=== PATIENT | male | born 1945 | race Caucasian/White ===

== ENCOUNTER 2018-06-17 14:59 | Observation (INO) ==
[2018-06-17 15:26] LABS: Basophils # (auto) 0.04 K/uL (0-0.2); Basophils % (auto) 0.6 %; Eosinophils # (auto) 0.29 K/uL (0-0.5); Eosinophils % (auto) 4.5 %; Hematocrit (blood only) 45.7 % (42-52); Hemoglobin 16.5 g/dL (14.0-18.0); Immature Granulocytes # (auto) 0.01 K/uL (0.00-0.02); Immature Granulocytes % (auto) 0.2 %; Lymphocytes # (auto) 1.25 K/uL (1.2-3.4); Lymphocytes % (auto) 19.6 %; Mean Corpuscular Hgb Conc 36.1 g/dL (32-36); Mean Corpuscular Volume 92.5 fL (80-100); Mean Platelet Volume 10.6 fL (7.4-10.4); Monocytes # (auto) 0.58 K/uL (0.11-0.59); Monocytes % (auto) 9.1 %; Neutrophils # (auto) 4.22 K/uL (1.4-6.5); Platelet Count 151 K/uL (130-400); RDW Coefficient of Variation 12.5 % (11.5-14.5); RDW Standard Deviation 42.4 fL (36.4-46.3); Red Blood Count 4.94 M/uL (4.7-6.1); White Blood Count 6.39 K/uL (4.8-10.8)
[2018-06-17 15:43] LABS: Albumin Level 3.7 gm/dl (3.4-5.0); BUN Creatinine Ratio 20.5 (10-20); Calcium 8.5 mg/dl (8.5-10.1); Est GFR (African American) 77.6; Est GFR (Non-African American) 66.9
[2018-06-17 15:48] LABS: Albumin Globulin Ratio 1.1 (0.9-2); Bilirubin,Total 1.3 mg/dl (0.2-1); Globulin 3.5 gm/dl (2.5-4.0); Total Protein 7.2 gm/dl (6.4-8.2); Troponin I 0.039 ng/ml (0-0.045)
[2018-06-17] MEDS ORDERED: ASPIRIN CHEW 324 MG PO STA (16:34)
--- NOTE | 2018-06-17 17:11 | XRay Report ---
XR chest 2V routine HISTORY: 72 years-old Male cp acute atypical chest pain COMPARISON: None available TECHNIQUE: PA and lateral views of the chest FINDINGS: Cardiomediastinal and hilar silhouettes are within normal limits. Calcification the thoracic aortic a rch. No pneumothorax, pleural effusion or overt pulmonary edema. Minimal ill-defined opacities are no misha within the distribution of the medial segment right middle lobe. Prior cholecystectomy. IMPRESSION: Ill-defined opacities of the medial segment right middle lobe, best seen on the lateral v iew are suggestive of atelectasis or minimal pneumonitis. The above report was generated using voice recognition software. It may contain grammatical, syntax o r spelling errors. Electronically signed by: Murtaza Li M.D. 06/17/2018 5:10 PM
--- NOTE | 2018-06-17 18:13 | History & Physical Report ---
Date of Service June 17, 2018 Assessment & Plan (1) Palpitations: This pt is a 72 yo male with a h/o PAF on Xarelto, nonischemic CM and chronic systolic CHF, DVT/PE, chronic LBBB, and OA who presents to the ER with c/o 2-3 days of profound, intermittent fatigue associated with palpitations and occasional chest pressure. Chest pressure was the worst 2 days ago and felt like "a bubble needed to burst in my chest," came on at rest and was relieved by getting up and walking around. He reports a h/o PAF, but feels his pulse has been a normal rate when these episodes occur. The chest pain did radiate through to his md upper back but is now resolved. He also had some waves of nausea and had one large loose stool yesterday. No vomiting, no blood in stool, no black tarry stools. Denies SOB associated. Did have one episode yesterday where he was shopping at the grocery store and felt like he was about to pass out. In the ER, he was found to have a LBBB on ECG which is normal for him for the last 10 years, sinus rhythm to sinus bradycardia, and all labs unremarkable. CXR normal except slight atelectasis of medial segment of RML. -Could be PAF vs other arrhythmia. -Admit to tele under observation -trend trops as below -check ECHO -Consult Cardiology for further recommendations -consider cardiac event monitor if no further events occur while here -continue Coreg home dose (2) Chest pain: Very atypical. CXR here negative. Initial trop is wnl but not zero. Has a h/o nonischemic CM and last cath approx 2015 was nonobstructive disease -trend trops -follow on tele -check ECHO -APAP as needed for pain (3) Hyperlipidemia: continue statin (4) LBBB (left bundle branch block): chronic for many years -follow (5) Paroxysmal atrial fibrillation: Has a h/o this. None so far here but question if palpitations are A-fib -continue Coreg for rate control -continue Xarelto for anticoagulation (6) History of venous thromboembolism: With provoked DVT and PE after TKA when he did not take his ASA for DVT prevention -continue Xarelto (7) Chronic systolic CHF (congestive heart failure): Last EF 45% Previous cardiac caths without intervention -continue Coreg -has had adverse SEs with ACEi and Entresto in the past (8) Nonischemic cardiomyopathy: as above (9) DVT prophylaxis: Xarelto Dispo-admit to tele observation History of Present Illness Chief Complaint: Palpitations, chest pain Primary Care Provider: Santy Nieto This pt is a 72 yo male with a h/o PAF on Xarelto, nonischemic CM and chronic systolic CHF, DVT/PE, chronic LBBB, and OA who presents to the ER with c/o 2-3 days of profound, intermittent fatigue associated with palpitations and occasional chest pressure. Chest pressure was the worst 2 days ago and felt like "a bubble needed to burst in my chest," came on at rest and was relieved by getting up and walking around. He reports a h/o PAF, but feels his pulse has been a normal rate when these episodes occur. The chest pain did radiate through to his md upper back but is now resolved. He also had some waves of nausea and had one large loose stool yesterday. No vomiting, no blood in stool, no black tarry stools. Denies SOB associated. Did have one episode yesterday where he was shopping at the grocery store and felt like he was about to pass out. In the ER, he was found to have a LBBB on ECG which is normal for him for the last 10 years, sinus rhythm to sinus bradycardia, and all labs unremarkable. CXR normal except slight atelectasis of medial segment of RML. Allergies Allergy/AdvReac Type Severity Reaction Status Date / Time No Known Allergies Allergy Unverified 06/17/18 17:17 Home Medications Home Medications Medication Instructions Recorded Confirmed Type carvedilol 3.125 mg PO BID 06/17/18 06/17/18 History rivaroxaban [Xarelto] 20 mg PO DAILY 06/17/18 06/17/18 History rosuvastatin 5 mg PO 3XWK 06/17/18 06/17/18 History Past Med/Surg History Medical History Chronic systolic CHF (congestive heart failure) History of venous thromboembolism Hyperlipidemia LBBB (left bundle branch block) Nonischemic cardiomyopathy Osteoarthritis Paroxysmal atrial fibrillation Surgical History History of knee replacement History of arthroscopic knee surgery History of bilateral inguinal hernia repair History of cholecystectomy History of lumbar discectomy Family History Father Coronary heart disease Mother , age 45 Alcoholic cirrhosis of liver Brother Coronary heart disease Social History Preferred Language: B[place]udian Communication Ability: Effective Infertility Medical Assistant Required: No Beliefs That Will Affect Care: None marital status: Current Living Situation: Spouse current occupational status: retired Other Information That Helps Us Care for You: No Feels Safe at Home: Yes Safety Concerns: Feels Safe At This Time Smoking Status: Never smoker Hx Alcohol Use: No Hx Substance Use: No Review of Systems All systems reviewed & are unremarkable except as noted in HPI & below Physical Exam Vital Signs (Past 24 Hours): Last Vital Signs Temp 36.6 C 06/17/18 15:05 Pulse 89 06/17/18 16:59 Resp 18 06/17/18 16:59 BP 109/75 06/17/18 16:59 Pulse Ox 98 06/17/18 17:01 Constitutional: WD/WN, vitals as above Eyes: PERRL, conjunctivae normal, anicteric sclerae ENMT: external ear and nose normal, oropharynx normal Neck: trachea midline, no thyromegaly Respiratory: normal respiratory effort, lungs clear to auscultation Cardiovascular: RRR, no murmur, no edema Vessels: normal peripheral pulses; no JVD, no carotid bruit and no abdominal aortic bruit Extremities: no calf tenderness and no pedal edema Gastrointestinal (Abdomen): normal bowel sounds, soft, nontender, no hepatosplenomegaly Musculoskeletal: Extremities: extremities normal to inspection; no cyanosis and no clubbing Skin: no rashes, warm and dry Neurologic: moves all extremities and awake; no focal motor deficits Psychiatric: A+Ox3, euthymic affect Results & Data Laboratory Results 06/17/18 06/17/18 Range/Units 15:18 15:18 WBC 6.39 (4.8-10.8) K/uL RBC 4.94 (4.7-6.1) M/uL Hgb 16.5 (14.0-18.0) g/dL Hct 45.7 (42-52) % MCV 92.5 (80-100) fL MCH 33.4 (25-34) pg MCHC 36.1 H (32-36) g/dL RDW Std Deviation 42.4 (36.4-46.3) fL RDW Coeff of Gerardo 12.5 (11.5-14.5) % Plt Count 151 (130-400) K/uL MPV 10.6 H (7.4-10.4) fL Immature Gran % (Auto) 0.2 % Neut % (Auto) 66.0 % Lymph % (Auto) 19.6 % [place] % (Auto) 9.1 % Eos % (Auto) 4.5 % Baso % (Auto) 0.6 % Immature Gran # (Auto) 0.01 (0.00-0.02) K/uL Neut # (Auto) 4.22 (1.4-6.5) K/uL Lymph # (Auto) 1.25 (1.2-3.4) K/uL [place] # (Auto) 0.58 (0.11-0.59) K/uL Eos # (Auto) 0.29 (0-0.5) K/uL Baso # (Auto) 0.04 (0-0.2) K/uL Sodium 138 (136-145) mmol/L Potassium 4.0 (3.5-5.1) mmol/L Chloride 109 H (98-107) mmol/L Carbon Dioxide 25 (21-32) mmol/L Anion Gap 4.0 (3-11) BUN 23 H (7-18) mg/dl Creatinine 1.11 (0.6-1.4) mg/dl Est Cr Clr Drug Dosing 59.0 ml/min Est GFR ( Amer) 77.6 Est GFR (Non-Af Amer) 66.9 BUN/Creatinine Ratio 20.5 H (10-20) Glucose 104 H (70-99) mg/dl Calcium 8.5 (8.5-10.1) mg/dl Total Bilirubin 1.3 H (0.2-1) mg/dl AST 16 (15-37) U/L ALT 18 (12-78) U/L Alkaline Phosphatase 86 (45-117) U/L Troponin I 0.039 (0-0.045) ng/ml Total Protein 7.2 (6.4-8.2) gm/dl Albumin 3.7 (3.4-5.0) gm/dl Globulin 3.5 (2.5-4.0) gm/dl Albumin/Globulin Ratio 1.1 (0.9-2) Lipase 101 (73-393) U/L Diagnostic Findings CXR image personally reviewed by me and agree with the following report: XR chest 2V routine HISTORY: 72 years-old Male cp acute atypical chest pain COMPARISON: None available TECHNIQUE: PA and lateral views of the chest FINDINGS: Cardiomediastinal and hilar silhouettes are within normal limits. Calcification the thoracic aortic arch. No pneumothorax, pleural effusion or overt pulmonary edema. Minimal ill-defined opacities are noted within the distribution of the medial segment right middle lobe. Prior cholecystectomy. IMPRESSION: Ill-defined opacities of the medial segment right middle lobe, best seen on the lateral view are suggestive of atelectasis or minimal pneumonitis. ECG Rhythm: normal sinus Findings: + LBBB Code Status & VTE Plan Code Status FULL CODE
[2018-06-17] MEDS ORDERED: ACETAMINOPHEN 325 MG TAB PO PRN (20:19)
[2018-06-17] MEDS: CARVEDILOL 3.125 MG TAB PO SCH (21:50)
--- NOTE | 2018-06-18 00:27 | Emergency Department Note ---
Entered by Sandhya Thomas acting as a scribe for History of Present Illness General Chief complaint: Chest Pain Stated complaint: CHEST PAIN Time Seen by Provider: 06/17/18 16:26 Source: patient Mode of arrival: ambulatory Limitations: no limitations History of Present Illness Provider complaint: Chest pain Onset (ago): day(s) (2.5) Location: chest (central) Radiation: non-radiation Pain Consistency: + other (worsening) Quality: + other (tightness, fluttering, pain) Relieved By: + none Associated symptoms: + nausea/vomiting and + other (Additional symptoms: fatigue, unusual visual symptoms); no fever/chills The patient is a 72 year old male who presents to the Emergency Room with com plaints of worsening central chest pain starting about 2.5 days ago. The patient characterizes his chest pain as a tight and fluttering sensation. He states that he feels as if air is trapped in his chest and that he needs to belch. He further complains of fatigue, nausea, and unusual visual symptoms, but he denies any fevers. He further denies recent travel and a history of atrial fibrillation and heart attacks. The patient reports that his last chemical stress test was performed a year ago prior to a knee replacement in [place]. 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 He notes that he regularly takes Carvedilol and Xeralto. Home Medications Home Medications Medication Instructions Recorded Confirmed Type carvedilol 3.125 mg PO BID 06/17/18 06/17/18 History rivaroxaban [Xarelto] 20 mg PO DAILY 06/17/18 06/17/18 History rosuvastatin 5 mg PO 3XWK 06/17/18 06/17/18 History Allergies Allergy/AdvReac Type Severity Reaction Status Date / Time No Known Allergies Allergy Unverified 06/17/18 17:17 Past Med/Surg History Medical History Chronic systolic CHF (congestive heart failure) History of venous thromboembolism Hyperlipidemia LBBB (left bundle branch block) Nonischemic cardiomyopathy Osteoarthritis Paroxysmal atrial fibrillation Surgical History History of knee replacement History of arthroscopic knee surgery History of bilateral inguinal hernia repair History of cholecystectomy History of lumbar discectomy Family History Father Coronary heart disease Mother , age 45 Alcoholic cirrhosis of liver Brother Coronary heart disease Social History Preferred Language: Yakut Communication Ability: Effective Patient Carrier Required: No Beliefs That Will Affect Care: None marital status: Current Living Situation: Spouse current occupational status: retired Other Information That Helps Us Care for You: No Feels Safe at Home: Yes Safety Concerns: Feels Safe At This Time Smoking Status: Never smoker Hx Alcohol Use: No Hx Substance Use: No Review of Systems See HPI for pertinent positives & negatives. and A total of 10 systems reviewed and were otherwise negative Physical Exam Vital Signs Vital Signs - 24 hr 06/17/18 15:05 06/17/18 15:12 06/17/18 16:59 Temperature 36.6 C Temperature Source Oral Sepsis Recent Fever Within 48 Hours No Sepsis Action Taken by Nursing No Action Required Pulse Rate 62 Pulse Rate [Right Finger] 89 Pulse Rhythm Regular Pulse Rhythm [Right Finger] Pulse Strength Normal Respiratory Rate 20 18 Respiratory Effort / Characteristics Non-Labored Spontaneous Non-Labored Spontaneous Respiratory Depth Normal Normal Respiratory Pattern Regular Regular Blood Pressure 140/84 Blood Pressure [Right Arm] 109/75 Blood Pressure Mean 102 Blood Pressure Mean [Right Arm] 86 Blood Pressure Position [Right Arm] Sitting Pulse Oximetry 95 97 98 Oxygen Delivery Method Room Air Room Air Room Air 06/17/18 17:01 06/17/18 19:34 06/17/18 20:11 Temperature 36.5 C Temperature Source Oral Sepsis Recent Fever Within 48 Hours Sepsis Action Taken by Nursing Pulse Rate Pulse Rate [Right Finger] 56 L 78 Pulse Rhythm Pulse Rhythm [Right Finger] Regular Pulse Strength Respiratory Rate 17 16 Respiratory Effort / Characteristics Non-Labored Spontaneous Respiratory Depth Normal Respiratory Pattern Regular Blood Pressure Blood Pressure [Right Arm] 139/81 124/77 Blood Pressure Mean Blood Pressure Mean [Right Arm] 100 92 Blood Pressure Position [Right Arm] Lying Lying Pulse Oximetry 98 97 97 Oxygen Delivery Method Room Air Room Air Room Air 06/17/18 20:41 06/17/18 22:30 Temperature Temperature Source Sepsis Recent Fever Within 48 Hours Sepsis Action Taken by Nursing Pulse Rate 67 Pulse Rate [Right Finger] Pulse Rhythm Pulse Rhythm [Right Finger] Pulse Strength Respiratory Rate Respiratory Effort / Characteristics Respiratory Depth Respiratory Pattern Blood Pressure Blood Pressure [Right Arm] Blood Pressure Mean Blood Pressure Mean [Right Arm] Blood Pressure Position [Right Arm] Pulse Oximetry Oxygen Delivery Method Room Air GENERAL: He is oriented to person, place, and time. He appears well-developed and well-nourished. He does not appear distressed. HENT: Exam performed. Head: Normocephalic and atraumatic. Right Ear: External ear normal. No mastoid tenderness. Left Ear: External ear normal. No mastoid tenderness. Mouth/Throat: The oropharynx is clear and moist. No trismus in the jaw. No dental abscesses or uvula swelling. No oropharyngeal exudate or tonsillar abscesses. EYES: Conjunctivae and EOM are normal. Pupils are equal, round, and reactive to light. Right eye exhibits no discharge. Left eye exhibits no discharge. No scleral icterus. NECK: Normal range of motion. Neck supple. No JVD present. No spinous process tenderness present. No carotid bruit present. No rigidity. No tracheal deviation and normal range of motion present. No Brudzinski's sign and no Kernig's sign no misha. CV: Normal rate, regular rhythm, normal heart sounds and intact distal pulses. There is no peripheral edema. Palpable radial pulses bue. PULM/CHEST: Effort normal and breath sounds normal. No respiratory distress. No stridor. He has no wheezes. He has no rales. Chest Wall: He exhibits no tenderness. ABD: The abdomen is soft. Bowel sounds are normal. He has no distension. No mass is present. There is no tenderness. There is no rebound, no guarding, no Stanton's sign and no tenderness at McBurney's point. Rovsig negative MUSC/SKEL: Normal range of motion. There is no peripheral edema, tenderness or deformity. LYMPH: No cervical adenopathy. NEURO: He is alert and oriented to person, place, and time. He has normal strength. No cranial nerve deficit or sensory deficit. Coordination and gait normal. GCS eye subscore is 4. GCS verbal subscore is 5. GCS motor subscore is 6. cerbellar tests wnl. SKIN: Skin is warm and dry. He is not diaphoretic. PSYCH: He has a normal mood and affect. His behavior is normal. Judgment and thought content normal. Course 1428: Past medical records reviewed. The patient was evaluated in room D9, and a complete history and physical examination were performed. 1713: Vital signs stable. Labs and imaging within normal limits. Patient was offered inpatient observation for chest pain which he states he would like to pursue rather than outpatient follow-up with cardiology. Spoke with Dr. Sujey Cordero who accepted the patient for observation. Administered Medications Carvedilol (Coreg) 3.125 mg PO BID BERNARDA Stop: 07/17/18 20:59 Last Admin: 06/17/18 21:50 Dose: 3.125 mg Documented by: [id number] Discontinued Medications Aspirin (Aspirin) 324 mg PO NOW STA Stop: 06/17/18 16:35 Last Admin: 06/17/18 16:55 Dose: 324 mg Documented by: [id number] Medical Decision Making Medical Records Attestation: I reviewed the patient's medical records. Home Medications Current Medication List: was personally reviewed by me Laboratory Data Attestation: I reviewed the patient's lab results. Result diagrams: 06/17/18 15:18 06/17/18 15:18 Lab Results 06/17/18 06/17/18 Range/Units 15:18 15:18 WBC 6.39 (4.8-10.8) K/uL RBC 4.94 (4.7-6.1) M/uL Hgb 16.5 (14.0-18.0) g/dL Hct 45.7 (42-52) % MCV 92.5 (80-100) fL MCH 33.4 (25-34) pg MCHC 36.1 H (32-36) g/dL RDW Std Deviation 42.4 (36.4-46.3) fL RDW Coeff of Gerardo 12.5 (11.5-14.5) % Plt Count 151 (130-400) K/uL MPV 10.6 H (7.4-10.4) fL Immature Gran % (Auto) 0.2 % Neut % (Auto) 66.0 % Lymph % (Auto) 19.6 % [place] % (Auto) 9.1 % Eos % (Auto) 4.5 % Baso % (Auto) 0.6 % Immature Gran # (Auto) 0.01 (0.00-0.02) K/uL Neut # (Auto) 4.22 (1.4-6.5) K/uL Lymph # (Auto) 1.25 (1.2-3.4) K/uL [place] # (Auto) 0.58 (0.11-0.59) K/uL Eos # (Auto) 0.29 (0-0.5) K/uL Baso # (Auto) 0.04 (0-0.2) K/uL Sodium 138 (136-145) mmol/L Potassium 4.0 (3.5-5.1) mmol/L Chloride 109 H (98-107) mmol/L Carbon Dioxide 25 (21-32) mmol/L Anion Gap 4.0 (3-11) BUN 23 H (7-18) mg/dl Creatinine 1.11 (0.6-1.4) mg/dl Est Cr Clr Drug Dosing 59.0 ml/min Est GFR ( Amer) 77.6 Est GFR (Non-Af Amer) 66.9 BUN/Creatinine Ratio 20.5 H (10-20) Glucose 104 H (70-99) mg/dl Calcium 8.5 (8.5-10.1) mg/dl Total Bilirubin 1.3 H (0.2-1) mg/dl AST 16 (15-37) U/L ALT 18 (12-78) U/L Alkaline Phosphatase 86 (45-117) U/L Troponin I 0.039 (0-0.045) ng/ml Total Protein 7.2 (6.4-8.2) gm/dl Albumin 3.7 (3.4-5.0) gm/dl Globulin 3.5 (2.5-4.0) gm/dl Albumin/Globulin Ratio 1.1 (0.9-2) Lipase 101 (73-393) U/L Imaging Data Radiologist's Impression: Radiology results as stated below per my review and the radiologist's interpretation: XR chest 2V routine HISTORY: 72 years-old Male cp acute atypical chest pain COMPARISON: None available TECHNIQUE: PA and lateral views of the chest FINDINGS: Cardiomediastinal and hilar silhouettes are within normal limits. Calcification the thoracic aortic arch. No pneumothorax, pleural effusion or overt pulmonary edema. Minimal ill-defined opacities are noted within the distribution of the medial segment right middle lobe. Prior cholecystectomy. IMPRESSION: Ill-defined opacities of the medial segment right middle lobe, best seen on the lateral view are suggestive of atelectasis or minimal pneumonitis. The above report was generated using voice recognition software. It may contain grammatical, syntax or spelling errors. Electronically signed by: Murtaza Li M.D. 06/17/2018 5:10 PM ECG Data Attestation: I personally reviewed and interpreted this ECG as follows: Indication: chest pain Rate (beats per minute): 58 Rhythm: sinus bradycardia Findings: + other (KS and QTC intervals within normal limits, QRS is 142) and + LBBB; no ST depression and no ST elevation Blood Pressure Blood Pressure Findings: Normal blood pressure MDM Narrative Vital signs stable. Labs and imaging within normal limits. Patient was offered inpatient observation for chest pain which he states he would like to pursue rather than outpatient follow-up with cardiology. Spoke with Dr. Sujey Cordero who accepted the patient for observation. Impression & Plan Chest pain Discharge Plan Visit Data *Final* Discharge Date/Time: 06/17/18 20:41 Chief Complaint: Chest Pain Stated Complaint: CHEST PAIN ED Provider: Juan Stanton Discharge Problem: Chest pain Patient Disposition: Admitted As Inpatient Discharge Instructions Interventions: ED Discharge Assessment Last Done: 06/17/18 20:41 The scribe's documentation has been prepared under my direction and personally reviewed by me in its entirety. I confirm that the note above accurately reflects all work, treatment, procedures, and medical decision making performed by me.
[2018-06-18] MEDS ORDERED: INFLUENZA ADMINISTRATION CHARGE ONE (00:45)
[2018-06-18] MEDS ORDERED: PNEUMOCOCCAL POLYSACCHARIDES 25 MCG/0.5 ML VIAL/SYR IM ONE (00:45)
[2018-06-18] MEDS ORDERED: PNEUMOCOCCAL ADMINISTRATION CHARGE ONE (00:45)
[2018-06-18] MEDS ORDERED: INFLUENZA VIRUS QUAD VACCINE 0.5 ML SYR IM ONE (00:45)
[2018-06-18 07:28] LABS: Basophils # (auto) 0.04 K/uL (0-0.2); Basophils % (auto) 0.7 %; Eosinophils # (auto) 0.31 K/uL (0-0.5); Eosinophils % (auto) 5.1 %; Hematocrit (blood only) 44.8 % (42-52); Hemoglobin 15.8 g/dL (14.0-18.0); Immature Granulocytes # (auto) 0.01 K/uL (0.00-0.02); Immature Granulocytes % (auto) 0.2 %; Lymphocytes # (auto) 1.25 K/uL (1.2-3.4); Lymphocytes % (auto) 20.6 %; Mean Corpuscular Hgb Conc 35.3 g/dL (32-36); Mean Corpuscular Volume 93.5 fL (80-100); Mean Platelet Volume 10.6 fL (7.4-10.4); Monocytes # (auto) 0.73 K/uL (0.11-0.59); Neutrophils # (auto) 3.73 K/uL (1.4-6.5); Neutrophils % (auto) 61.4 %; Platelet Count 142 K/uL (130-400); RDW Coefficient of Variation 12.6 % (11.5-14.5); RDW Standard Deviation 43.4 fL (36.4-46.3); Red Blood Count 4.79 M/uL (4.7-6.1); White Blood Count 6.07 K/uL (4.8-10.8)
[2018-06-18 07:58] LABS: Albumin Level 3.5 gm/dl (3.4-5.0); BUN Creatinine Ratio 25.5 (10-20); Bilirubin Direct 0.2 mg/dl (0-0.2); Calcium 8.6 mg/dl (8.5-10.1); Creatinine Clr Calc Pharmacy 57.9 ml/min; Est GFR (African American) 75.9; Est GFR (Non-African American) 65.5
[2018-06-18 08:03] LABS: Bilirubin,Total 1.1 mg/dl (0.2-1); Total Protein 6.8 gm/dl (6.4-8.2); Troponin I 0.042 ng/ml (0-0.045)
[2018-06-18] MEDS: CARVEDILOL 3.125 MG TAB PO SCH (08:07)
[2018-06-18 15:49] LABS: Lyme Ab IgG w/WB Rflx Negative (Negative)
[2018-06-18 15:57] LABS: Lyme Ab IgM w/WB Rflx Equivocal (Negative)
--- NOTE | 2018-06-18 16:15 | Cardiology Consultation ---
Date of Consultation June 18, 2018 Assessment & Plan (1) Fatigue: The patient gives a history of 2-3 days of persistent fatigue concerning for left ventricular dysfunction. Fortunately, his echocardiogram notes normal left ventricular systolic function. We have discussed the possibility of Lyme disease. Dr. Alvarado will send titers. (2) CAD (coronary artery disease): The patient has a history of nonobstructive coronary artery disease discovered at the time of a cardiac catheterization in August 2013. (3) Hyperlipidemia: Continue treatment with rosuvastatin. (4) PAF (paroxysmal atrial fibrillation): There has been no recent recurrence of his atrial fibrillation. personnel monitor notes sinus rhythm. Continue long-term anticoagulation. (5) Left ventricular dysfunction: Left ventricular ejection fraction has normalized on his current echocardiogram. History of Present Illness Attending Physician: Concetta Alvarado MD History of Present Illness Mr. Swain is a 72-year-old male admitted yesterday with complaints of fatigue. This consultation was ordered assist in his cardiac management. Of note, the patient follows with Dr. Delvalle in the outpatient setting. The patient was in his usual state of health until approximately 2-3 days prior to presentation. He noted profound fatigue which was persistent. On occasion, he noted nausea and could feel his heart beating. This was reminiscent of a time when his left ventricular ejection fraction was depressed at 30-35%. He has never experienced exertional angina pectoris despite his history of coronary artery disease. The patient had a cardiac catheterization performed in August 2013 which noted 10- 30% proximal LAD, and a 30% ostial PDA stenosis. He was diagnosed with a nonischemic cardiomyopathy at that time. His most recent echocardiogram was performed in July 2017 which noted an ejection fraction of 45-50%. The patient has tolerated medical management without difficulty. However, attempts at increasing his beta-sharla dose resulted in profound fatigue. The patient admits to working vigorously around his home and property. He has been out in the [facility]. Currently, patient is resting comfortably in bed without complaints. Past medical and surgical history 1. Coronary artery disease, nonobstructive-August 2013, see above 2. Nonischemic [id number]%, July 2017 3. Paroxysmal atrial fibrillation-April 2017 4. LBBB 5. Diastolic dysfunction 6. Hypercholesterolemia 7. Chronic low back pain 8. DVT/PE-April 2017 9. Right TKR-April 2017 10. DJD Social history and lives with his Retired No tobacco or alcohol. Family history Noncontributory Review of systems A 10 point review of systems was undertaken and negative except for that described above. Allergies Allergy/AdvReac Type Severity Reaction Status Date / Time No Known Allergies Allergy Unverified 06/17/18 17:17 Home Medications Home Medications Medication Instructions Recorded Confirmed Type carvedilol 3.125 mg PO BID 06/17/18 06/17/18 History rivaroxaban [Xarelto] 20 mg PO DAILY 06/17/18 06/17/18 History rosuvastatin 5 mg PO 3XWK 06/17/18 06/17/18 History Patient History Medical History Chronic systolic CHF (congestive heart failure) History of venous thromboembolism Hyperlipidemia LBBB (left bundle branch block) Nonischemic cardiomyopathy Osteoarthritis Paroxysmal atrial fibrillation Surgical History History of knee replacement History of arthroscopic knee surgery History of bilateral inguinal hernia repair History of cholecystectomy History of lumbar discectomy Family History Father Coronary heart disease Mother , age 45 Alcoholic cirrhosis of liver Brother Coronary heart disease Social History Preferred Language: Yoruba Communication Ability: Effective Butter Wrapper Required: No Beliefs That Will Affect Care: None marital status: Current Living Situation: Spouse current occupational status: retired Other Information That Helps Us Care for You: No Feels Safe at Home: Yes Safety Concerns: Feels Safe At This Time Smoking Status: Never smoker Hx Alcohol Use: No Hx Substance Use: No Physical Exam Vital Signs (Past 24 Hours): Last Vital Signs Temp 36.5 C 06/18/18 16:00 Pulse 58 L 06/18/18 16:00 Resp 18 06/18/18 16:00 BP 126/84 06/18/18 16:00 Pulse Ox 94 06/18/18 16:00 Physical Exam: In general this is a well-developed well-nourished white male in no acute distress. HEENT exam is negative. Neck is supple with full carotid upstrokes. There are no carotid bruits. Jugular venous pressure is flat at 90. There is no thyromegaly. Cardiovascular exam reveals a regular rhythm with a normal S1 and S2. No S3, S4, or murmurs are noted. Lungs are clear without rales, rhonchi, or wheezes. Abdomen is soft and nontender without bruits. Extremities reveal intact radial artery and posterior tibial pulses bilaterally. There is no peripheral edema. Results & Data Laboratory Results Laboratory Results - last 24 hr 06/17/18 06/18/18 06/18/18 15:18 01:12 07:11 WBC 6.07 RBC 4.79 Hgb 15.8 Hct 44.8 MCV 93.5 MCH 33.0 MCHC 35.3 RDW Std Deviation 43.4 RDW Coeff of Gerardo 12.6 Plt Count 142 MPV 10.6 H Immature Gran % (Auto) 0.2 Neut % (Auto) 61.4 Lymph % (Auto) 20.6 [place] % (Auto) 12.0 Eos % (Auto) 5.1 Baso % (Auto) 0.7 Immature Gran # (Auto) 0.01 Neut # (Auto) 3.73 Lymph # (Auto) 1.25 [place] # (Auto) 0.73 H Eos # (Auto) 0.31 Baso # (Auto) 0.04 Sodium Potassium Chloride Carbon Dioxide Anion Gap BUN Creatinine Est Cr Clr Drug Dosing Est GFR ( Amer) Est GFR (Non-Af Amer) BUN/Creatinine Ratio Glucose Calcium Total Bilirubin Direct Bilirubin AST ALT Alkaline Phosphatase Troponin I 0.036 Total Protein Albumin Lyme Disease IgG Ab Negative Lyme Disease IgM Ab Equivocal H 06/18/18 06/18/18 07:11 07:11 WBC RBC Hgb Hct MCV MCH MCHC RDW Std Deviation RDW Coeff of Gerardo Plt Count MPV Immature Gran % (Auto) Neut % (Auto) Lymph % (Auto) [place] % (Auto) Eos % (Auto) Baso % (Auto) Immature Gran # (Auto) Neut # (Auto) Lymph # (Auto) [place] # (Auto) Eos # (Auto) Baso # (Auto) Sodium 141 Potassium 4.0 Chloride 107 Carbon Dioxide 28 Anion Gap 5.0 BUN 29 H Creatinine 1.13 Est Cr Clr Drug Dosing 57.9 Est GFR ( Amer) 75.9 Est GFR (Non-Af Amer) 65.5 BUN/Creatinine Ratio 25.5 H Glucose 86 Calcium 8.6 Total Bilirubin 1.1 H Cancelled Direct Bilirubin 0.2 Cancelled AST 16 Cancelled ALT 18 Cancelled Alkaline Phosphatase 79 Cancelled Troponin I 0.042 Cancelled Total Protein 6.8 Cancelled Albumin 3.5 Cancelled Lyme Disease IgG Ab Lyme Disease IgM Ab Diagnostic Findings EKG notes sinus bradycardia with a left axis deviation a complete left bundle- branch block. Chest x-ray shows no acute disease. Echocardiogram notes normal left ventricular systolic function with ejection fraction of 55-60%.
[2018-06-18] MEDS ORDERED: RIVAROXABAN 20 MG TAB PO SCH (16:30)
[2018-06-18] MEDS ORDERED: DOXYCYCLINE HYCLATE 100 MG CAP PO STA (18:36)
--- NOTE | 2018-06-18 18:41 | Discharge Summary ---
Date of Service June 18, 2018 Admission HPI Per Admitting Provider This pt is a 72 yo male with a h/o PAF on Xarelto, nonischemic CM and chronic systolic CHF, DVT/PE, chronic LBBB, and OA who presents to the ER with c/o 2-3 days of profound, intermittent fatigue associated with palpitations and occasional chest pressure. Chest pressure was the worst 2 days ago and felt like "a bubble needed to burst in my chest," came on at rest and was relieved by getting up and walking around. He reports a h/o PAF, but feels his pulse has been a normal rate when these episodes occur. The chest pain did radiate through to his md upper back but is now resolved. He also had some waves of nausea and had one large loose stool yesterday. No vomiting, no blood in stool, no black tarry stools. Denies SOB associated. Did have one episode yesterday where he was shopping at the grocery store and felt like he was about to pass out. In the ER, he was found to have a LBBB on ECG which is normal for him for the last 10 years, sinus rhythm to sinus bradycardia, and all labs unremarkable. CXR normal except slight atelectasis of medial segment of RML. Principal Diagnosis Heart palpitations, nausea, suspected Lyme disease Discharge Exam Constitutional WD/WN, vitals as above Eyes PERRL, conjunctivae normal, anicteric sclerae Neck trachea midline, no thyromegaly Respiratory normal respiratory effort, lungs clear to auscultation Cardiovascular RRR, no murmur, no edema Vessels: normal peripheral pulses; no JVD Extremities: no calf tenderness and no pedal edema Gastrointestinal (Abdomen) normal bowel sounds, soft, nontender, no hepatosplenomegaly Musculoskeletal Extremities: extremities normal to inspection; no cyanosis and no clubbing Skin no rashes, warm and dry Neurologic moves all extremities and awake; no focal motor deficits Psychiatric A+Ox3, euthymic affect Discharge Data Allergies Allergy/AdvReac Type Severity Reaction Status Date / Time No Known Allergies Allergy Unverified 06/17/18 17:17 Consultations Cardiology Procedures Performed Echocardiogram-LVEF 55-60%, grade 1 diastolic dysfunction, borderline LVH Hospital Course (1) Palpitations: This pt is a 72 yo male with a h/o PAF on Xarelto, nonischemic CM and chronic systolic CHF, DVT/PE, chronic LBBB, and OA who presents to the ER with c/o 2-3 days of profound, intermittent fatigue associated with palpitations and occasional chest pressure. Chest pressure was the worst 2 days ago and felt like "a bubble needed to burst in my chest," came on at rest and was relieved by getting up and walking around. He reports a h/o PAF, but feels his pulse has been a normal rate when these episodes occur. The chest pain did radiate through to his mid upper back but is now resolved. He also had some waves of nausea and had one large loose stool yesterday. No vomiting, no blood in stool, no black tarry stools. Denies SOB associated. Did have one episode the day prior to admission where he was shopping at the grocery store and felt like he was about to pass out. In the ER, he was found to have a LBBB on ECG which is normal for him for the last 10 years, sinus rhythm to sinus bradycardia, and all labs unremarkable. CXR normal except slight atelectasis of medial segment of RML. He was admitted on telemetry and had no significant arrhythmias other than some occasional bigeminy. His serial troponins were negative. His echocardiogram showed normal LV function. Cardiology saw him and suggested checking a Lyme disease test but no further cardiac evaluation was necessary. His Lyme titer came back equivocal for the IgM. Western blot was sent and is pending at the time of discharge. Given the absence of any other diagnosis to explain his significant fatigue, nausea waves, intermittent chest pressure and palpitations, he will be treated empirically with a 4-week course of doxycycline 100 mg p.o. twice daily. He will follow-up with his PCP within 1 week after discharge. The PCP can kindly check up on the final result of the Western blot. Even if the test is negative, it could be early in the course of illness. I would opt to continue the 4-week treatment as doxycycline is usually relatively harmless. I did d iscuss possible side effects of doxycycline with the patient. He is agreeable to taking it. -He will continue on his usual Coreg home dose He is stable for discharge to home (2) Chest pain: Very atypical. CXR here negative. Serial troponins were negative as above. He has a h/o nonischemic CM and last cath approx 2015 was nonobstructive disease. Echocardiogram here with normal EF and no wall motion abnormalities. No further evaluation needed. Likely related to either a GI source or possibly Lyme disease as above (3) Hyperlipidemia: continue statin (4) LBBB (left bundle branch block): chronic for many years (5) Paroxysmal atrial fibrillation: Has a h/o this. None was seen on telemetry monitoring during his entire stay -continue Coreg for rate control -continue Xarelto for anticoagulation (6) History of venous thromboembolism: With provoked DVT and PE after TKA when he did not take his ASA for DVT prevention -continue Xarelto (7) Chronic systolic CHF (congestive heart failure): Last EF 45% but now improved to 55-60% on echocardiogram this admission Previous cardiac caths without intervention -continue Coreg -has had adverse SEs with ACEi and Entresto in the past (8) Nonischemic cardiomyopathy: as above-now resolved (9) DVT prophylaxis: Xarelto Dispo-stable for discharge to home Total Time Total Time Spent Total Time Spent (In Minutes): Greater than 30 minutes Total Time Includes: Examination of the Patient, Discharge Planning, Medication Reconciliation and Communication With Other Providers (Cardiology) Discharge Plan Discharge Items Patient Disposition: Home - Self-Care Reason For Visit: PALPITATIONS, CHEST PAIN Discharge Diagnosis: Heart palpitations, chest pain, suspected Lyme disease Condition: Good Discharge Goals: Diagnostic testing, Improve disease control and Therapeutic intervention Activity: As commented below Lifting: Gradually increase as tolerated Bathing: No limitations Exercise/Sports: Gradually increase as tolerated Driving/Machine Use: No limitations Non-emergency contact: Primary Care Provider Call non-emergency contact if: you have any medication questions, your symptoms worsen, your pain is not controlled, your pain is worsening, your pain is unusual for you, your pain is concerning for you, you have a fever and your temperature is above 101 Follow-up/Referrals: Santy Nieto [Primary Care Provider] - (Please call for follow-up appointment within 1 week after discharge.) Diet: Heart Healthy Addtl Provider Instructions: You were admitted with heart palpitations and chest pain with nausea. You did not have a heart attack and the ultrasound of your heart shows it is functioning normally. You had no atrial fibrillation on the heart monitor. Because of your symptoms, the tinning equipment tender suggested you be checked for Lyme disease. The test showing an equivocal positive result. You will be sent home with a 4-week course of doxycycline to take as an antibiotic. Please follow-up with your primary care physician within 1 week after discharge. Your primary care physician can follow-up on the final results of the confirmatory Lyme disease test. Prescriptions: New doxycycline hyclate 100 mg tablet 100 mg PO BID 28 Days Qty: 56 RF: 0 Continued carvedilol 3.125 mg Tablet 3.125 mg PO BID RF: 0 rosuvastatin 5 mg Tablet 5 mg PO 3XWK RF: 0 Xarelto 20 mg Tablet 20 mg PO DAILY RF: 0 Stand-Alone Forms: Call Back Authorization, [facility] Discharge Orders: Discharge Order (Routine); Ordered 06/18/18 Ordered By: Concetta Alvarado Admission Data Admit Date/Time: 06/17/18 19:15 Attending Provider: Concetta Alvarado Admit Provider: Concetta Alvarado Primary Care Provider: Santy Nieto Other Providers: Marylou Cordero Albert R. Jr Service: Telemetry Medical Other Pending Studies at Discharge: Yes Studies:: Lyme disease Western blot confirmatory test
[2018-06-20] MEDS ORDERED: ROSUVASTATIN CALCIUM 5 MG TAB PO SCH (09:00)
[2018-06-23 03:38] LABS: 18KDIGG Band NONREACTIVE (NONREACTIVE); 23KDIGG Band NONREACTIVE (NONREACTIVE); 23KDIGM Band REACTIVE (NONREACTIVE); 28KDIGG Band NONREACTIVE (NONREACTIVE); 30KDIGG Band NONREACTIVE (NONREACTIVE); 39KDIGG Band NONREACTIVE (NONREACTIVE); 39KDIGM Band NONREACTIVE (NONREACTIVE); 41KDIGG Band REACTIVE (NONREACTIVE); 41KDIGM Band NONREACTIVE (NONREACTIVE); 45KDIGG Band NONREACTIVE (NONREACTIVE); 58KDIGG Band NONREACTIVE (NONREACTIVE); 66KDIGG Band NONREACTIVE (NONREACTIVE); 93KDIGG Band NONREACTIVE (NONREACTIVE); Lyme Antibodies, WB IgG NEGATIVE (NEGATIVE); Lyme Antibodies, WB IgM NEGATIVE (NEGATIVE)
== END 2018-06-18 20:07 | disposition home or self-care (01) ==
LOC: ED 14:59 → 2N 14:59